=== PATIENT | male | born 1985 | race Caucasian/White ===

== ENCOUNTER 2017-04-03 11:15 | Outpatient (CLI) | payer MEDICARE, MEDICAID ==
[2017-04-03 11:59] LABS: Cardiac Risk 6.2 (Less than 4.5)
[2017-04-03 12:35] LABS: Eosinophils 3 % (0-10); Hemoglobin 16.9 g/dL (14.0-18.0); Lymphocytes 45 % (21-51); MDiff Complete? YES; Mean Corpuscular HGB CONC 32.8 g/dL (32.0-36.0); Mean Corpuscular Hemoglobin 32.3 pg (27.0-31.0); Mean Corpuscular Volume 98.3 fl (80.0-94.0); Mean Platelet Volume 5.4 fL (7.4-10.4); Monocytes 5 % (0-10); Neutrophil 29 % (42-75); PLT Morphology Comment Appears Adequate; Platelet Count 275 thou/uL (130-400); RBC Distribution Width 12.4 % (11.5-14.5); RBC Morphology Normal; Reactive Lymphocytes 15 % (0-10); Red Blood Cell (RBC) Count 5.24 mill/uL (4.70-6.10); White Blood Cell (WBC) Count 3.3 thou/uL (4.8-10.8)
== END 2017-04-03 11:16 | disposition home or self-care (01) ==
LOC: NAV LAB 11:15
PROVIDERS: ATTEND Family Medicine
DX: E78.5 Hyperlipidemia, unspecified (principal); D58.2 Other hemoglobinopathies
CPT/HCPCS: 36415; 80061; 85025

== ENCOUNTER 2017-11-07 15:11 | Emergency (ER) | payer OTHER, MEDICARE, MEDICAID ==
[2017-11-07] MEDS ORDERED: Lidocaine 1% 20 ML MDV ONE (15:58)
--- NOTE | 2017-11-07 15:59 | RAD ---
RIGHT ELBOW 2 VIEWS: Date: 11/07/17 HISTORY: Injury. Laceration. COMPARISON: None. FINDINGS: No acute fracture. No malalignment. No radiopaque foreign object is seen. IMPRESSION: 1. No acute abnormality. 2. Evaluation of the lateral radiograph is severely limited. POS: [facility]
== END 2017-11-07 16:22 | disposition home or self-care (01) ==
LOC: NAV ERS 15:11
DX: S41.111A Laceration without foreign body of right upper arm, initial encounter (principal); Q90.9 Down syndrome, unspecified; E78.5 Hyperlipidemia, unspecified; W25.XXXA Contact with sharp glass, initial encounter
CPT/HCPCS: 12001; J2001

== ENCOUNTER 2021-05-25 18:38 | Emergency (ER) | payer MEDICARE, MEDICAID ==
[2021-05-25] MEDS ORDERED: Ondansetron ODT 4 MG TAB ONE (20:02)
[2021-05-25 20:08] LABS: ALT (SGPT) 32 U/L (8-55); Albumin 3.5 g/dL (3.5-5.0); Alkaline Phosphatase 60 U/L (40-110); Anion Gap 16 mmol/L (10-20); BUN (Urea Nitrogen) 17 mg/dL (8.9-20.6); Bilirubin, Total 0.6 mg/dL (0.2-1.2); Calc. Creatinine Clearance 0 mL/min (70-130); Calcium 8.2 mg/dL (7.8-10.44); Carbon Dioxide 21 mmol/L (22-29); Chloride 105 mmol/L (98-107); Globulin 3.5 g/dL (2.4-3.5); Glucose 99 mg/dL (70-105); Potassium 4.3 mmol/L (3.5-5.1); Sodium 138 mmol/L (136-145)
[2021-05-25 20:12] LABS: AST (SGOT) 44 U/L (5-34)
[2021-05-25 20:31] LABS: Eosinophils 1 % (0-10); Lymphocytes 23 % (21-51); MDiff Complete? YES; Mean Corpuscular HGB CONC 31.8 g/dL (32.0-36.0); Mean Corpuscular Hemoglobin 31.7 pg (27.0-31.0); Mean Corpuscular Volume 99.7 fL (78.0-98.0); Mean Platelet Volume 7.8 fL (7.4-10.4); Monocytes 15 % (0-10); Neutrophil 56 % (42-75); Platelet Count 127 thou/uL (130-400); Platelet Morphology Comment Appears Adequate; RBC Distribution Width 13.3 % (11.5-14.5); Reactive Lymphocytes 5 % (0-10); Red Blood Cell (RBC) Count 5.97 mill/uL (4.70-6.10); White Blood Cell (WBC) Count 2.2 thou/uL (4.8-10.8)
[2021-05-26 17:43] LABS: SARS-CoV-2 PCR by NAA DETECTED (NotDetected)
== END 2021-05-25 20:58 | disposition home or self-care (01) ==
LOC: NAV ERS 18:38
DX: U07.1 COVID-19 (principal); E86.0 Dehydration; E78.5 Hyperlipidemia, unspecified; E78.00 Pure hypercholesterolemia, unspecified
CPT/HCPCS: 80053; 85025; 99283; U0003; U0005; Q0162

== ENCOUNTER 2021-06-01 10:48 | Emergency (ER) | payer MEDICARE, MEDICAID ==
[2021-06-01] MEDS ORDERED: Sodium Chloride 0.9% 1,000 ML ONE (11:45)
[2021-06-01] MEDS ORDERED: Acetaminophen 650 MG Suppository ONE (11:45)
[2021-06-01 11:59] LABS: Hemoglobin 17.1 g/dL (14.0-18.0); Mean Corpuscular HGB CONC 33.6 g/dL (32.0-36.0); Mean Corpuscular Volume 95.1 fL (78.0-98.0); Mean Platelet Volume 7.3 fL (7.4-10.4); Platelet Count 210 thou/uL (130-400); RBC Distribution Width 12.8 % (11.5-14.5); Red Blood Cell (RBC) Count 5.34 mill/uL (4.70-6.10); White Blood Cell (WBC) Count 3.6 thou/uL (4.8-10.8)
[2021-06-01 12:08] LABS: ALT (SGPT) 32 U/L (8-55); AST (SGOT) 72 U/L (5-34); Alkaline Phosphatase 47 U/L (40-110); Anion Gap 11 mmol/L (10-20); BUN (Urea Nitrogen) 13 mg/dL (8.9-20.6); Bilirubin, Total 0.8 mg/dL (0.2-1.2); Calc. Creatinine Clearance 0 mL/min (70-130); Calcium 8.1 mg/dL (7.8-10.44); Carbon Dioxide 23 mmol/L (22-29); Chloride 106 mmol/L (98-107); Glucose 136 mg/dL (70-105); Potassium 3.4 mmol/L (3.5-5.1); Sodium 137 mmol/L (136-145)
[2021-06-01 12:20] LABS: #Lymphocytes 0.6 thou/uL (1.20-3.40); #Monocytes 0.3 thou/uL (0.11-0.59); #Neutrophils 2.7 thou/uL (1.40-6.50); %Basophils 0.8 % (0.0-1.0); %Eosinophils 1.4 % (0.0-10.0); %Monocytes 8.2 % (0.0-10.0)
[2021-06-01] MEDS ORDERED: Dexamethasone 4 mg/ml Vial ONE (14:26)
[2021-06-01 16:11] LABS: Bilirubin Small (Negative); Blood, Urine Negative (Negative); Clarity Slightly Cloudy (Clear); Glucose, Urine (Dipstick) Negative (Negative); Ketone, Urine Negative (Negative); Leukocyte Negative (Negative); Nitrite Negative (Negative); Protein, Urine (Dipstick) 100 mg/dL (Neg-Trace); pH, Urine 6.5 (5.0-9.0)
[2021-06-01 16:14] LABS: Bacteria/HPF Rare-Few HPF (None Seen); Mucous/LPF Rare LPF (<2+); Squamous Epithelial 0-3 HPF (0-3); WBC/HPF 0-3 HPF (0-3)
== END 2021-06-01 16:50 | disposition short-term general hospital (02) ==
LOC: NAV ERS 10:48
DX: U07.1 COVID-19 (principal); J12.82 Pneumonia due to coronavirus disease 2019; E86.0 Dehydration; E78.5 Hyperlipidemia, unspecified
CPT/HCPCS: 71045; 80053; 81003; 81015; 83605; 84484; 85025; 87040; 96374; J1100; J7050